=== PATIENT | male | born 2005 | race Caucasian/White ===

== ENCOUNTER 2024-02-25 02:41 | Emergency (ER) | payer BC | END 2024-02-25 03:30 | disposition home or self-care (01) | LOC: ERS 02:41 | DX: S01.512A Laceration without foreign body of oral cavity, initial encounter (principal); W01.10XA Fall on same level from slipping, tripping and stumbling with subsequent striking against unspecified object, initial encounter; Y93.72 Activity, wrestling; Z55.0 Illiteracy and low-level literacy | CPT/HCPCS: 99283 ==